=== PATIENT | male | born 1945 | race Caucasian/White ===

== ENCOUNTER → 2017-06-23 | Outpatient (CLI) | payer OTHER, BC | LOC: FCPNEURO 23:15 | PROVIDERS: ATTEND Psychiatry & Neurology Sleep Medicine | DX: G47.39 Other sleep apnea (principal) ==

== ENCOUNTER → 2017-10-21 | Outpatient (CLI) | payer OTHER, BC | LOC: BMCIMAGING 12:44 | PROVIDERS: ATTEND Internal Medicine | DX: M79.651 Pain in right thigh (principal) ==

== ENCOUNTER 2018-07-24 11:13 | Emergency (ER) | payer OTHER, BC ==
[2018-07-24 11:52] LABS: PLATELET COUNT 216 10^3/uL (150-400)
--- NOTE | 2018-07-24 12:29 | EDPHY ---
H & P Stated Complaint: L arm numbness/cramping Time Seen by Provider: 07/24/18 11:31 HPI/ROS: CHIEF COMPLAINT: Left hand cramping, fatigue HISTORY OF PRESENT ILLNESS: The patient presents to the ED with a 2 day history of fatigue. The patient reportedly woke up today and developed some paresthesias in his 5th and 4th fingers and then developed cramping involving the extremity. The patient felt slightly short of breath. The patient denies any acute chest pain. He denies pleuritic chest pain. He denies any asymmetric calf pain or swelling. The patient reports his symptoms have largely resolved. He denies any additional acute neurologic symptoms. The patient contacted his primary care provider who referred him to the emergency department. REVIEW OF SYSTEMS: A comprehensive 10 point review of systems is otherwise negative aside from elements mentioned in the history of present illness. Source: Patient - Personal History Current Tetanus/Diphtheria Vaccine: Yes Current Tetanus Diphtheria and Acellular Pertussis (TDAP): Yes - Medical/Surgical History Hx Asthma: No Hx Chronic Respiratory Disease: No Hx Diabetes: Yes Hx Cardiac Disease: No Hx Renal Disease: No Hx Cirrhosis: No Hx Alcoholism: No Hx HIV/AIDS: No Hx Splenectomy or Spleen Trauma: No Other PMH: BPH, HTN, UTI, gastric ulcer, self catheterize for urine - Social History Smoking Status: Former smoker - Physical Exam Exam: General Appearance: Alert, no distress Eyes: Pupils equal and round no pallor or injection ENT, Mouth: Mucous membranes moist Respiratory: There are no retractions, lungs are clear to auscultation Cardiovascular: Regular rate and rhythm Gastrointestinal: Abdomen is soft and nontender, no masses, bowel sounds normal Neurological: A&O, normal motor function, normal sensory exam, normal cranial nerves Skin: Warm and dry, no rashes Musculoskeletal: Neck is supple nontender Extremities: symmetrical, full range of motion Psychiatric: Patient is oriented X 3, there is no agitation Constitutional: Initial Vital Signs Temperature (C) 37 C 07/24/18 11:17 Heart Rate 76 07/24/18 11:17 Respiratory Rate 16 07/24/18 11:17 Blood Pressure 110/57 L 07/24/18 11:17 O2 Sat (%) 96 07/24/18 11:17 O2 Delivery Mode Room Air Allergies/Adverse Reactions: No Known Allergies Allergy (Unverified 07/24/18 11:16) Home Medications: Medication Instructions Recorded Ciprofloxacin 07/24/18 Losartan-Hctz 100-25 mg Tab 07/24/18 Omeprazole 07/24/18 Rapaflo 07/24/18 amLODIPine BESYLATE 07/24/18 Medical Decision Making - Diagnostics EKG Interpretation: EKG: Complete interpretation has been separately recorded in the [facility] archive. Summary impression: Sinus rhythm, prolonged NV interval, right bundle branch block Imaging Results: Imaging Impressions Chest X-Ray 07/24/18 13:06 Impression: No active cardiopulmonary disease seen. ED Course/Re-evaluation: Patient presents to the ED with several days of fatigue, some paresthesias in his left hand with carpal pedal spasms and the recommendation by his primary care provider that he be evaluated for acute coronary syndrome. The patient's troponin is normal. He has a right bundle branch block on his EKG with no prior one to compare to. The patient has a negative D-dimer which I feel adequately excludes pulmonary embolism. Patient's chest x-ray demonstrates no evidence of acute disease. The patient was noted to have a slightly elevated creatinine of 1.7. He received a L of normal saline. The patient was kept in the emergency department for several hours. He was rehydrated. I explained him that I see no objective evidence of acute coronary syndrome, stroke or metabolic derangement aside from mild renal insufficiency. The patient was offered admission to the hospital versus outpatient follow-up. At this point time he would like to be discharged and follow up with his primary care provider. He has been instructed to return to the ED for severe chest pain, markedly worsening shortness of breath or other concerns. Differential Diagnosis: Differential diagnosis considered includes acute coronary syndrome, pulmonary embolism, pneumonia, asthma, bronchitis, dehydration, viral syndrome - Data Points Laboratory Results: Laboratory Results 07/24/18 11:40 07/24/18 11:40 07/24/18 07/24/18 07/24/18 11:43 11:40 11:40 WBC 5.60 10^3/uL 10^3/uL (3.80-9.50) RBC 4.60 10^6/uL 10^6/uL (4.40-6.38) Hgb 14.0 g/dL g/dL (13.7-17.5) Hct 39.7 % L % (40.0-51.0) MCV 86.3 fL fL (81.5-99.8) MCH 30.4 pg pg (27.9-34.1) MCHC 35.3 g/dL g/dL (32.4-36.7) RDW 12.7 % % (11.5-15.2) Plt Count 216 10^3/uL 10^3/uL (150-400) MPV 9.9 fL fL (8.7-11.7) Neut % (Auto) 61.1 % % (39.3-74.2) Lymph % (Auto) 19.1 % % (15.0-45.0) [place] % (Auto) 15.7 % H % (4.5-13.0) Eos % (Auto) 3.4 % % (0.6-7.6) Baso % (Auto) 0.5 % % (0.3-1.7) Nucleat RBC Rel Count 0.0 % % (0.0-0.2) Absolute Neuts (auto) 3.42 10^3/uL 10^3/uL (1.70-6.50) Absolute Lymphs (auto) 1.07 10^3/uL 10^3/uL (1.00-3.00) Absolute Monos (auto) 0.88 10^3/uL H 10^3/uL (0.30-0.80) Absolute Eos (auto) 0.19 10^3/uL 10^3/uL (0.03-0.40) Absolute Basos (auto) 0.03 10^3/uL 10^3/uL (0.02-0.10) Absolute Nucleated RBC 0.00 10^3/uL 10^3/uL (0-0.01) Immature Gran % 0.2 % % (0.0-1.1) Immature Gran # 0.01 10^3/uL 10^3/uL (0.00-0.10) D-Dimer Sodium 140 mEq/L mEq/L (135-145) Potassium 4.5 mEq/L mEq/L (3.5-5.2) Chloride 106 mEq/L mEq/L (97-110) Carbon Dioxide 24 mEq/l mEq/l (22-31) Anion Gap 10 mEq/L mEq/L (6-14) BUN 40 mg/dL H mg/dL (7-23) Creatinine 1.7 mg/dL H mg/dL (0.7-1.3) Estimated GFR 40 Glucose 98 mg/dL mg/dL (70-100) Calcium 9.6 mg/dL mg/dL (8.5-10.4) POC Troponin I 0.01 ng/mL ng/mL (0.00-0.08) 07/24/18 11:30 WBC RBC Hgb Hct MCV MCH MCHC RDW Plt Count MPV Neut % (Auto) Lymph % (Auto) [place] % (Auto) Eos % (Auto) Baso % (Auto) Nucleat RBC Rel Count Absolute Neuts (auto) Absolute Lymphs (auto) Absolute Monos (auto) Absolute Eos (auto) Absolute Basos (auto) Absolute Nucleated RBC Immature Gran % Immature Gran # D-Dimer < 0.27 ug/mLFEU ug/mLFEU (0.00-0.50) Sodium Potassium Chloride Carbon Dioxide Anion Gap BUN Creatinine Estimated GFR Glucose Calcium POC Troponin I Medications Given: Discontinued Medications Sodium Chloride (Ns) 1,000 mls @ 0 mls/hr IV EDNOW ONE; Wide Open PRN Reason: Protocol Stop: 07/24/18 13:06 Last Admin: 07/24/18 13:20 Dose: 1,000 mls Point of Care Test Results: Chemistry 07/24/18 11:43 POC Troponin I 0.01 ng/mL ng/mL (0.00-0.08) Departure - Departure Disposition: Home, Routine, Self-Care Clinical Impression: Dyspnea Qualifiers: Dyspnea type: dyspnea on exertion Qualified Code(s): R06.09 - Other forms of dyspnea Condition: Good Instructions: Dyspnea (ED) Additional Instructions: The testing done in the emergency department today demonstrates no significant abnormality aside from evidence of mild dehydration and a slightly elevated kidney function. I do recommend increasing your fluid intake today. I would like your primary care provider to recheck your kidney function in the next 1-2 weeks. Please return to the ED for markedly worsening symptoms or other concerns. Workup today demonstrates no evidence of a blood clot, pneumonia, cardiac condition or other acute abnormality. Referrals: Adilene Allan MD [Primary Care Provider] - As per Instructions
--- NOTE | 2018-07-24 12:30 | CPEKG ---
Test Reason : OPEN Blood Pressure : / mmHG Vent. Rate : 074 BPM Atrial Rate : 075 BPM P-R Int : 234 ms QRS Dur : 152 ms QT Int : 402 ms P-R-T Axes : 047 027 005 degrees QTc Int : 446 ms Sinus rhythm Prolonged MO interval Right bundle branch block Confirmed by Pritesh Segovia ([id number]) on 07/24/2018 12:29:36 PM Referred By: Confirmed By:Pritesh Segovia
[2018-07-24] MEDS ORDERED: NS 1,000 ML IV ONE (13:05)
[2018-07-24 13:17] VITALS: BP 145/80
== END 2018-07-24 14:12 | disposition home or self-care (01) ==
DX: R06.09 Other forms of dyspnea (principal); R20.2 Paresthesia of skin; R53.83 Other fatigue; I10 Essential (primary) hypertension; K25.9 Gastric ulcer, unspecified as acute or chronic, without hemorrhage or perforation; E86.9 Volume depletion, unspecified
CPT/HCPCS: 84484-ER